=== PATIENT | female | born 1945 | race Caucasian/White ===

== ENCOUNTER 2017-05-31 12:48 | Emergency (ER) | payer OTHER ==
[~2017-05-31] VITALS: Ht 154.9 cm; Wt 74.4 kg
[2017-05-31 12:57] VITALS: BP 148/65
== END 2017-05-31 14:45 | disposition home or self-care (01) ==
LOC: ED 12:48
DX: H43.393 Other vitreous opacities, bilateral (principal); H57.13 Ocular pain, bilateral; I10 Essential (primary) hypertension; Z88.1 Allergy status to other antibiotic agents

== ENCOUNTER 2018-03-08 18:43 | Inpatient (IN) | payer OTHER ==
[~2018-03-08] VITALS: Ht 157.5 cm; Wt 80.0 kg
[2018-03-08 20:38] LABS: BASOPHIL % 0.1 % (0-2); PLATELET COUNT 254 x10^3mcL (130-400); RED CELL DISTRIBUTION WIDTH 13.8 % (11.5-14.5)
[2018-03-08 20:47] LABS: CALCIUM 8.9 mg/dL (8.5-10.1); CARBON DIOXIDE 29.8 mmol/L (21-32); CHLORIDE SERUM 98 mmol/L (98-107); CREATININE SERUM 0.8 mg/dL (0.6-1.0); GFR1 > 60 mL/min; GLUCOSE SERUM 119 mg/dL (74-106); POTASSIUM SERUM 3.6 mmol/L (3.5-5.1); SODIUM SERUM 134 mmol/L (136-145)
[2018-03-08 20:59] LABS: ALBUMIN 3.7 g/dL (3.4-5.0); ALKALINE PHOSPHATASE 160 U/L (46-116); ALT/SGPT 100 U/L (14-59); AST/SGOT 68 U/L (15-37); BILIRUBIN TOTAL 0.36 mg/dL (0.20-1.00); TOTAL PROTEIN, SERUM 7.6 g/dL (6.4-8.2)
[2018-03-08 21:22] LABS: CK-MB < 0.5 ng/mL (0-3.6); CREATINE KINASE 82 U/L (26-192)
[2018-03-08 21:30] LABS: microscopic required? YES; urine erythrocyte 1+ (NEGATIVE)
[2018-03-08] MEDS ORDERED: LOSARTAN POTASS1 TA6 PO (22:00)
[2018-03-08] MEDS ORDERED: CHEWABLE VITE1 CTB PO (22:00)
[2018-03-08] MEDS ORDERED: PRAVACHOL20 MG PO (22:01)
[2018-03-08] MEDS ORDERED: ASPIR LOW81 MG PO (22:01)
[2018-03-08] MEDS ORDERED: NOR5 PO (22:01)
[2018-03-08 22:33] VITALS: BP 147/55
[2018-03-08 23:49] LABS: CHOLESTEROL/HDL RATIO 4.4; PHOSPHOROUS 3.2 mg/dL (2.5-4.9)
[2018-03-08 23:55] LABS: T3 TOTAL 0.98 ng/mL
[2018-03-08 23:57] LABS: FREE T4 0.88 ng/dL (0.76-1.46); FREE THYROXINE INDEX 2.7 ug/dL (1.4-4.5); T4(THYROXINE) 8.3 ug/dL (4.7-13.3)
[2018-03-09 04:35] VITALS: BP 128/54
[2018-03-09 06:37] LABS: CALCIUM 7.9 mg/dL (8.5-10.1); CHLORIDE SERUM 107 mmol/L (98-107); CREATININE SERUM 0.8 mg/dL (0.6-1.0); GFR1 > 60 mL/min; GLUCOSE SERUM 118 mg/dL (74-106); POTASSIUM SERUM 3.7 mmol/L (3.5-5.1); SODIUM SERUM 141 mmol/L (136-145)
[2018-03-09 07:45] LABS: PLATELET COUNT 227 x10^3mcL (130-400); RED CELL DISTRIBUTION WIDTH 13.9 % (11.5-14.5)
[2018-03-09 08:38] VITALS: BP 133/55
[2018-03-09 11:03] LABS: ATYPICAL LYMPH 4 %; BAND NEUTROPHIL 8 % (0-10); BASOPHIL 0 % (0-2); MONOCYTE 10 % (0-7); SEGMENTED NEUTROPHILS 42 % (37-75); rbc morphology (normal/abnorm) ABNORMAL (NORMAL)
[2018-03-09 11:04] LABS: PLATELET MORPHOLOGY N
[2018-03-09 13:25] VITALS: BP 140/51
[2018-03-09 17:11] VITALS: BP 116/64
[2018-03-09 20:35] VITALS: BP 114/46
[2018-03-10 04:56] VITALS: BP 120/48
[2018-03-10 06:30] LABS: CALCIUM 7.8 mg/dL (8.5-10.1); CARBON DIOXIDE 25.7 mmol/L (21-32); CHLORIDE SERUM 107 mmol/L (98-107); CREATININE SERUM 0.7 mg/dL (0.6-1.0); GFR1 > 60 mL/min; GLUCOSE SERUM 130 mg/dL (74-106); MAGNESIUM 1.8 mg/dL (1.8-2.4); PHOSPHOROUS 2.6 mg/dL (2.5-4.9); POTASSIUM SERUM 3.7 mmol/L (3.5-5.1); SODIUM SERUM 139 mmol/L (136-145)
[2018-03-10 06:49] LABS: BASOPHIL % 0.2 % (0-2); PLATELET COUNT 182 x10^3mcL (130-400)
[2018-03-10 09:45] VITALS: BP 120/55
[2018-03-10 16:35] VITALS: BP 134/53
[2018-03-10 20:46] VITALS: BP 123/57
[2018-03-11 05:42] VITALS: BP 139/57
[2018-03-11 06:33] LABS: BASOPHIL % 0.2 % (0-2); PLATELET COUNT 165 x10^3mcL (130-400); RED CELL DISTRIBUTION WIDTH 13.9 % (11.5-14.5)
[2018-03-11 06:41] LABS: CALCIUM 8.2 mg/dL (8.5-10.1); CARBON DIOXIDE 29.9 mmol/L (21-32); CHLORIDE SERUM 106 mmol/L (98-107); CREATININE SERUM 0.7 mg/dL (0.6-1.0); GFR1 > 60 mL/min; GLUCOSE SERUM 122 mg/dL (74-106); SODIUM SERUM 143 mmol/L (136-145)
[2018-03-11 07:44] VITALS: Ht 157.5 cm; Wt 80.0 kg
[2018-03-11 07:58] VITALS: BP 136/53
[2018-03-11 11:13] VITALS: BP 113/54
[2018-03-11 12:12] VITALS: BP 113/54
[2018-03-11 17:37] VITALS: BP 124/41
[2018-03-11 20:08] VITALS: BP 154/50
[2018-03-12 05:27] VITALS: BP 125/55
[2018-03-12 06:25] LABS: CALCIUM 8.2 mg/dL (8.5-10.1); CARBON DIOXIDE 29.8 mmol/L (21-32); CHLORIDE SERUM 104 mmol/L (98-107); CREATININE SERUM 0.7 mg/dL (0.6-1.0); GFR1 > 60 mL/min; GLUCOSE SERUM 109 mg/dL (74-106); POTASSIUM SERUM 4.3 mmol/L (3.5-5.1); SODIUM SERUM 142 mmol/L (136-145)
[2018-03-12 07:35] LABS: PLATELET COUNT 175 x10^3mcL (130-400)
[2018-03-12 08:00] VITALS: BP 123/46
[2018-03-12 11:25] LABS: BAND NEUTROPHIL 10 % (0-10); BASOPHIL 0 % (0-2); MONOCYTE 10 % (0-7); PLATELET MORPHOLOGY PLATELETS NORMAL; SEGMENTED NEUTROPHILS 39 % (37-75)
[2018-03-12 11:26] LABS: rbc morphology (normal/abnorm) ABNORMAL (NORMAL)
[2018-03-12 13:19] VITALS: BP 125/41
[2018-03-12 17:11] VITALS: BP 138/52
[2018-03-12 21:09] VITALS: BP 111/54
[2018-03-13 05:53] VITALS: BP 118/48
[2018-03-13 06:04] LABS: BASOPHIL % 0.2 % (0-2); PLATELET COUNT 199 x10^3mcL (130-400); RED CELL DISTRIBUTION WIDTH 14.4 % (11.5-14.5)
[2018-03-13 06:23] LABS: CALCIUM 8.5 mg/dL (8.5-10.1); CARBON DIOXIDE 28.7 mmol/L (21-32); CHLORIDE SERUM 104 mmol/L (98-107); CREATININE SERUM 0.7 mg/dL (0.6-1.0); GFR1 > 60 mL/min; GLUCOSE SERUM 116 mg/dL (74-106); POTASSIUM SERUM 3.5 mmol/L (3.5-5.1); SODIUM SERUM 141 mmol/L (136-145)
[2018-03-13 08:50] VITALS: BP 138/60; BP 141/56
[2018-03-13 13:04] VITALS: BP 133/36
[2018-03-13 17:14] VITALS: BP 109/37
[2018-03-13 20:23] VITALS: BP 118/49
[2018-03-14 05:19] VITALS: BP 124/46
[2018-03-14 07:08] LABS: CALCIUM 8.3 mg/dL (8.5-10.1); CARBON DIOXIDE 28.7 mmol/L (21-32); CHLORIDE SERUM 103 mmol/L (98-107); CREATININE SERUM 0.7 mg/dL (0.6-1.0); GFR1 > 60 mL/min; GLUCOSE SERUM 118 mg/dL (74-106); MAGNESIUM 2.2 mg/dL (1.8-2.4); PHOSPHOROUS 3.8 mg/dL (2.5-4.9); POTASSIUM SERUM 3.4 mmol/L (3.5-5.1); SODIUM SERUM 141 mmol/L (136-145)
[2018-03-14 07:25] LABS: BASOPHIL % 0.3 % (0-2); PLATELET COUNT 227 x10^3mcL (130-400); RED CELL DISTRIBUTION WIDTH 14.1 % (11.5-14.5)
[2018-03-14 09:55] VITALS: BP 99/47
[2018-03-14 17:20] VITALS: BP 135/51
[2018-03-14 20:22] VITALS: BP 124/58
[2018-03-15 05:24] VITALS: BP 105/62
[2018-03-15 06:48] LABS: CALCIUM 8.6 mg/dL (8.5-10.1); CARBON DIOXIDE 30.6 mmol/L (21-32); CHLORIDE SERUM 106 mmol/L (98-107); CREATININE SERUM 0.6 mg/dL (0.6-1.0); GFR1 > 60 mL/min; GLUCOSE SERUM 106 mg/dL (74-106); MAGNESIUM 2.5 mg/dL (1.8-2.4); PHOSPHOROUS 4.2 mg/dL (2.5-4.9); POTASSIUM SERUM 3.6 mmol/L (3.5-5.1); SODIUM SERUM 142 mmol/L (136-145)
[2018-03-15 07:32] LABS: BASOPHIL % 0.3 % (0-2); PLATELET COUNT 276 x10^3mcL (130-400); RED CELL DISTRIBUTION WIDTH 14.3 % (11.5-14.5)
[2018-03-15 08:28] VITALS: BP 139/59
[2018-03-15 16:44] VITALS: BP 123/51
[2018-03-15 20:35] VITALS: BP 151/64
[2018-03-15 21:45] VITALS: BP 132/43
[2018-03-16 05:54] VITALS: BP 109/55
[2018-03-16 06:54] LABS: CALCIUM 8.4 mg/dL (8.5-10.1); CARBON DIOXIDE 29.2 mmol/L (21-32); CHLORIDE SERUM 108 mmol/L (98-107); CREATININE SERUM 0.7 mg/dL (0.6-1.0); GFR1 > 60 mL/min; GLUCOSE SERUM 91 mg/dL (74-106); MAGNESIUM 2.4 mg/dL (1.8-2.4); POTASSIUM SERUM 3.6 mmol/L (3.5-5.1); SODIUM SERUM 142 mmol/L (136-145)
[2018-03-16 08:23] LABS: BASOPHIL % 0.1 % (0-2); PLATELET COUNT 344 x10^3mcL (130-400)
[2018-03-16 09:51] VITALS: BP 124/43
[2018-03-16 12:52] LABS: microscopic required? NO
[2018-03-16 13:46] LABS: UA SPECIFIC GRAVITY 1.015 (1.005-1.035); urine erythrocyte NEGATIVE (NEGATIVE)
[2018-03-16 16:57] LABS: RED BLOOD CELLS 3.53 M/mm3 (4.10-5.10)
[2018-03-16 17:03] LABS: IRON 26 ug/dL (50-170); TOTAL IRON BINDING CAPACITY 175 ug/dL (250-450)
[2018-03-16 18:04] VITALS: BP 128/43
[2018-03-16 21:00] VITALS: BP 116/51
[2018-03-17 05:41] VITALS: BP 120/49
[2018-03-17 06:32] LABS: CALCIUM 8.6 mg/dL (8.5-10.1); CARBON DIOXIDE 27.8 mmol/L (21-32); CHLORIDE SERUM 107 mmol/L (98-107); CREATININE SERUM 0.6 mg/dL (0.6-1.0); GFR1 > 60 mL/min; GLUCOSE SERUM 98 mg/dL (74-106); POTASSIUM SERUM 4.1 mmol/L (3.5-5.1); SODIUM SERUM 145 mmol/L (136-145)
[2018-03-17 06:59] LABS: BASOPHIL % 0.1 % (0-2); PLATELET COUNT 394 x10^3mcL (130-400)
[2018-03-17 09:29] VITALS: BP 125/46
[2018-03-17 17:13] VITALS: BP 111/45
[2018-03-17 20:53] VITALS: BP 125/54
[2018-03-18 05:36] VITALS: BP 118/53
[2018-03-18 07:07] LABS: BASOPHIL % 0.3 % (0-2); RED CELL DISTRIBUTION WIDTH 14.3 % (11.5-14.5)
[2018-03-18 07:11] LABS: PLATELET COUNT 402 x10^3mcL (130-400)
[2018-03-18 07:26] LABS: CALCIUM 8.6 mg/dL (8.5-10.1); CARBON DIOXIDE 28.5 mmol/L (21-32); CHLORIDE SERUM 107 mmol/L (98-107); CREATININE SERUM 0.6 mg/dL (0.6-1.0); GFR1 > 60 mL/min; GLUCOSE SERUM 91 mg/dL (74-106); POTASSIUM SERUM 4.1 mmol/L (3.5-5.1); SODIUM SERUM 144 mmol/L (136-145)
[2018-03-18 09:45] VITALS: BP 125/45
[2018-03-18 17:28] VITALS: BP 135/52
[2018-03-18 21:11] VITALS: BP 133/54
[2018-03-19 05:15] VITALS: BP 128/60
[2018-03-19 06:19] LABS: CARBON DIOXIDE 27.6 mmol/L (21-32); CHLORIDE SERUM 106 mmol/L (98-107); CREATININE SERUM 0.6 mg/dL (0.6-1.0); GFR1 > 60 mL/min; GLUCOSE SERUM 84 mg/dL (74-106); POTASSIUM SERUM 4.2 mmol/L (3.5-5.1); SODIUM SERUM 143 mmol/L (136-145)
[2018-03-19 06:44] LABS: BASOPHIL % 0.4 % (0-2); RED CELL DISTRIBUTION WIDTH 14.2 % (11.5-14.5)
[2018-03-19 07:06] LABS: PLATELET COUNT 455 x10^3mcL (130-400)
[2018-03-19 08:42] VITALS: BP 135/63
[2018-03-19 15:49] VITALS: BP 139/71
[2018-03-19] MEDS ORDERED: ROC2I IV (15:58)
[2018-03-19] MEDS ORDERED: VANCO 1.251.25 GM/25 IV (15:59)
[2018-03-19] MEDS ORDERED: LAC PO (16:01)
[2018-03-19] MEDS ORDERED: [UNRECOGNIZED DRUG - CODE] IV (16:01)
[2018-03-19 20:38] VITALS: BP 113/44
== END 2018-03-19 22:54 | disposition home health service (06) | DRG 871 ==
LOC: ED 18:43 → DU 21:51 → MU 21:51 → DU 22:20 → MU 03-13 15:30
PROVIDERS: Emergency Medicine; Family Medicine; Internal Medicine Infectious Disease; Student in an Organized Health Care Education/Training Program
PROC: 05JY3ZZ Inspection of Upper Vein, Percutaneous Approach (ICD-10-PCS; principal; 2018-03-17)
PROC: 05HY33Z Insertion of Infusion Device into Upper Vein, Percutaneous Approach (ICD-10-PCS; 2018-03-18)
DX: A41.9 Sepsis, unspecified organism (principal); I33.0 Acute and subacute infective endocarditis; E43 Unspecified severe protein-calorie malnutrition; N39.0 Urinary tract infection, site not specified; C91.10 Chronic lymphocytic leukemia of B-cell type not having achieved remission; E87.1 Hypo-osmolality and hyponatremia; B96.89 Other specified bacterial agents as the cause of diseases classified elsewhere; G90.8 Other disorders of autonomic nervous system; K57.30 Diverticulosis of large intestine without perforation or abscess without bleeding; E87.6 Hypokalemia; K44.9 Diaphragmatic hernia without obstruction or gangrene; D17.71 Benign lipomatous neoplasm of kidney; E83.41 Hypermagnesemia; K76.0 Fatty (change of) liver, not elsewhere classified; K82.4 Cholesterolosis of gallbladder; I10 Essential (primary) hypertension; E78.00 Pure hypercholesterolemia, unspecified; M54.9 Dorsalgia, unspecified; D64.9 Anemia, unspecified; Z68.35 Body mass index [BMI] 35.0-35.9, adult
CPT/HCPCS: 83880; 84439; 86644; 86645; 97535-GP; C1751; J0696; J1642; J1885; J1940; J2001; J2060; J2250; J3010; J3370; J3490; J7030; J7050; Q0092; Q9966; Q9967

== ENCOUNTER 2018-03-20 16:46 | Emergency (ER) | payer OTHER ==
[~2018-03-20] VITALS: Ht 157.5 cm; Wt 75.7 kg
[~2018-03-20 16:46] MED LIST: ASPIR LOW81 MG PO; CHEWABLE VITE1 CTB PO; LAC PO; LOSARTAN POTASS1 TA6 PO; NOR5 PO; PRAVACHOL20 MG PO; ROC2I IV; VANCO 1.251.25 GM/25 IV; [UNRECOGNIZED DRUG - CODE] IV
[2018-03-20 18:09] LABS: microscopic required? NO
[2018-03-20 18:14] LABS: UA SPECIFIC GRAVITY <=1.005 (1.005-1.035); urine erythrocyte NEGATIVE (NEGATIVE)
[2018-03-20 18:34] LABS: RED CELL DISTRIBUTION WIDTH 13.9 % (11.5-14.5)
[2018-03-20 18:35] LABS: PLATELET COUNT 502 x10^3mcL (130-400)
[2018-03-20 18:43] LABS: CALCIUM 8.9 mg/dL (8.5-10.1); CARBON DIOXIDE 29.1 mmol/L (21-32); CHLORIDE SERUM 104 mmol/L (98-107); CREATININE SERUM 0.7 mg/dL (0.6-1.0); GFR1 > 60 mL/min; GLUCOSE SERUM 150 mg/dL (74-106); SODIUM SERUM 140 mmol/L (136-145)
[2018-03-20 18:56] LABS: ALKALINE PHOSPHATASE 222 U/L (46-116); ALT/SGPT 87 U/L (14-59); AST/SGOT 40 U/L (15-37); BILIRUBIN TOTAL 0.34 mg/dL (0.20-1.00); CHOLESTEROL 142 mg/dL (<200); TOTAL PROTEIN, SERUM 7.4 g/dL (6.4-8.2)
[2018-03-20 19:00] LABS: ALBUMIN 2.8 g/dL (3.4-5.0); HDL CHOLESTEROL 22 mg/dL (40-60)
[2018-03-20 20:07] LABS: MAGNESIUM 2.2 mg/dL (1.8-2.4)
[2018-03-20 20:15] LABS: T3 TOTAL 1.03 ng/mL
[2018-03-20 20:16] LABS: FREE T4 1.11 ng/dL (0.76-1.46); T4(THYROXINE) 9.3 ug/dL (4.7-13.3)
[2018-03-20 21:10] VITALS: BP 122/65
== END 2018-03-20 21:10 | disposition home or self-care (01) ==
LOC: ED 16:46
PROVIDERS: Emergency Medicine; Family Medicine
DX: R50.9 Fever, unspecified (principal); I10 Essential (primary) hypertension; E78.00 Pure hypercholesterolemia, unspecified
CPT/HCPCS: 83880; 84439; J0696; J3370; J3490; J7030; Q0092

== ENCOUNTER 2018-04-02 11:01 | Emergency (ER) | payer OTHER ==
[~2018-04-02] VITALS: Ht 157.5 cm; Wt 74.6 kg
[2018-04-02 11:12] VITALS: Ht 157.5 cm; Wt 74.6 kg
[2018-04-02 12:35] LABS: UA SPECIFIC GRAVITY <=1.005 (1.005-1.035); microscopic required? YES; urine erythrocyte TRACE (NEGATIVE)
[2018-04-02 12:36] LABS: BASOPHIL % 0.5 % (0-2); PLATELET COUNT 210 x10^3mcL (130-400); RED CELL DISTRIBUTION WIDTH 13.8 % (11.5-14.5)
[2018-04-02 12:46] VITALS: BP 111/53
[2018-04-02 13:05] LABS: CALCIUM 8.6 mg/dL (8.5-10.1); CARBON DIOXIDE 27.6 mmol/L (21-32); CHLORIDE SERUM 102 mmol/L (98-107); CREATININE SERUM 0.7 mg/dL (0.6-1.0); GLUCOSE SERUM 111 mg/dL (74-106); POTASSIUM SERUM 3.4 mmol/L (3.5-5.1); SODIUM SERUM 141 mmol/L (136-145)
[2018-04-02 13:10] LABS: ALKALINE PHOSPHATASE 138 U/L (46-116); ALT/SGPT 65 U/L (14-59); AST/SGOT 42 U/L (15-37); BILIRUBIN TOTAL 0.4 mg/dL (0.20-1.00); TOTAL PROTEIN, SERUM 7.1 g/dL (6.4-8.2)
[2018-04-02 13:13] LABS: ALBUMIN 2.9 g/dL (3.4-5.0)
== END 2018-04-02 14:20 | disposition home or self-care (01) ==
LOC: ED 11:01
PROVIDERS: Emergency Medicine
DX: R21 Rash and other nonspecific skin eruption (principal); E78.00 Pure hypercholesterolemia, unspecified; Z88.8 Allergy status to other drugs, medicaments and biological substances; I10 Essential (primary) hypertension
CPT/HCPCS: 36415

== ENCOUNTER 2018-04-03 15:42 | Emergency (ER) | payer OTHER ==
[~2018-04-03] VITALS: Ht 157.5 cm; Wt 75.4 kg
[2018-04-03 16:00] VITALS: Ht 157.5 cm; Wt 75.4 kg
[2018-04-03 17:07] LABS: CALCIUM 8.8 mg/dL (8.5-10.1); CARBON DIOXIDE 24.4 mmol/L (21-32); CHLORIDE SERUM 104 mmol/L (98-107); CREATININE SERUM 0.7 mg/dL (0.6-1.0); GLUCOSE SERUM 101 mg/dL (74-106); POTASSIUM SERUM 3.4 mmol/L (3.5-5.1); SODIUM SERUM 140 mmol/L (136-145)
[2018-04-03 17:12] LABS: ALBUMIN 2.9 g/dL (3.4-5.0); ALKALINE PHOSPHATASE 179 U/L (46-116); ALT/SGPT 116 U/L (14-59); AST/SGOT 79 U/L (15-37); BASOPHIL % 0.2 % (0-2); BILIRUBIN TOTAL 0.49 mg/dL (0.20-1.00); PLATELET COUNT 216 x10^3mcL (130-400); RED CELL DISTRIBUTION WIDTH 14.5 % (11.5-14.5); TOTAL PROTEIN, SERUM 6.6 g/dL (6.4-8.2)
[2018-04-03 18:25] VITALS: BP 106/47
== END 2018-04-03 18:25 | disposition home or self-care (01) ==
LOC: ED 15:42
PROVIDERS: Emergency Medicine
DX: N12 Tubulo-interstitial nephritis, not specified as acute or chronic (principal); I38 Endocarditis, valve unspecified; M54.9 Dorsalgia, unspecified; E78.00 Pure hypercholesterolemia, unspecified; I10 Essential (primary) hypertension; Z88.1 Allergy status to other antibiotic agents
CPT/HCPCS: J1885; J2765; Q0092